=== PATIENT | male | born 1980 | race Hispanic/Latino ===

== ENCOUNTER 2024-10-02 07:24 | Emergency (ER) | payer MEDICARE ==
[~2024-10-02] VITALS: Ht 160 cm; Wt 112.5 kg
[2024-10-02 17:41] VITALS: PULSE 91; RESP 18; TEMP 98.9; O2SAT 96
[2024-10-02] MEDS ORDERED: AMOX TR-K CLV1 EAC2 PO (19:45)
== END 2024-10-02 20:04 | disposition home or self-care (01) ==
LOC: ER 18:11
DX: M25.572 Pain in left ankle and joints of left foot (principal); I10 Essential (primary) hypertension; E11.9 Type 2 diabetes mellitus without complications; E78.5 Hyperlipidemia, unspecified; I73.9 Peripheral vascular disease, unspecified; Q90.9 Down syndrome, unspecified
CPT/HCPCS: 99283

== ENCOUNTER 2024-10-07 23:03 | Inpatient (IN) | payer MEDICARE ==
[~2024-10-07] VITALS: Ht 160 cm; Wt 112.5 kg
[~2024-10-07 23:03] MED LIST: AMOX TR-K CLV1 EAC2 PO
[2024-10-07 23:19] VITALS: PULSE 91; RESP 20; TEMP 98.4
[2024-10-07] MEDS ORDERED: SODIUM CHLORIDE FLUSH 10 ML SYR IV PRN (23:30)
[2024-10-08] VITALS (8 sets, daily range): BP systolic 125–147; BP diastolic 75–94; PULSE 98–112; RESP 17–18; TEMP 97.9–99; O2SAT 96–99
[2024-10-08 00:02] LABS: BASOPHILS # (AUTO) 0.1 (0.0-0.1); BASOPHILS % 0.7 % (0.0-1.0); EOSINOPHILS # (AUTO) 0.1 (0.0-0.4); EOSINOPHILS % 1.9 % (0.0-6.0); HEMATOCRIT 48.6 % (38.2-49.6); LYMPHOCYTES # (AUTO) 1.7 (1.0-3.2); LYMPHOCYTES % 24.5 % (18.0-39.1); MEAN CORPUSCULAR HEMOGLOBIN 30.8 pg (28-32); MEAN CORPUSCULAR HGB CONC 32.9 g/dL (31-35); MEAN CORPUSCULAR VOLUME 93.6 fL (81-99); MONOCYTES # (AUTO) 0.5 (0.2-0.8); MONOCYTES % 7.1 % (4.4-11.3); NEUTROPHILS # (AUTO) 4.5 (2.1-6.9); NEUTROPHILS % 65.2 % (38.7-80.0); PLATELET COUNT 131 x10e3/uL (140-360); RED BLOOD COUNT 5.19 x10e6/uL (4.3-5.7); RED CELL DISTRIBUTION WIDTH 13.7 % (11.7-14.4); WHITE BLOOD COUNT 6.87 x10e3/uL (4.8-10.8)
[2024-10-08 00:16] LABS: INR 0.99; PROTHROMBIN TIME 13.7 seconds (11.9-14.5)
[2024-10-08 00:17] LABS: PARTIAL THROMBOPLASTIN TIME 32.5 seconds (23.8-35.5)
[2024-10-08 00:33] LABS: ALBUMIN 3.4 g/dL (3.5-5.0); ALBUMIN/GLOBULIN RATIO 0.8 (0.8-2.0); ANION GAP 16.1 mmol/L (8-16); BILIRUBIN,TOTAL 0.7 mg/dL (0.2-1.2); CALCIUM 9.1 mg/dL (8.4-10.2); CREATININE, SERUM 0.9 mg/dL (0.72-1.25); POTASSIUM 4.1 mmol/L (3.5-5.1); TOTAL PROTEIN 7.8 g/dL (6.5-8.1)
[2024-10-08 00:39] LABS: TROPONIN I 0.018 ng/mL (0-0.300)
[2024-10-08] MEDS: SODIUM CHLORIDE 0.9% 1000ML 1,000 ML IV ONE ×2 (01:46→02:24)
[2024-10-08] MEDS ORDERED: ONDANSETRON HCL INJ 2MG/ML 2ML 2 MG/ML VIAL IV PRN (03:00)
[2024-10-08] MEDS ORDERED: SODIUM CHLORIDE FLUSH 10 ML SYR INJ PRN (03:00)
[2024-10-08] MEDS: ASPIRIN 81 MG CHEW TAB PO ONE (04:04)
[2024-10-08] MEDS ORDERED: HYDRALAZINE HCL 20 MG/ML VIAL IV PRN (04:15)
[2024-10-08] MEDS ORDERED: METFORMIN HCL1000 MG PO (05:55)
[2024-10-08] MEDS ORDERED: OXCARBAZEPINE150 MG PO (05:55)
[2024-10-08] MEDS ORDERED: QUETIAPINE FUMA50 MG PO (05:55)
[2024-10-08] MEDS ORDERED: LISINOPRIL5 MG PO (05:55)
[2024-10-08] MEDS ORDERED: ROSUVASTATIN CAL5 MG PO (05:55)
[2024-10-08 07:25] LABS: CHOL/HDL RATIO 2.8 (3.9-4.7); MAGNESIUM 1.9 MG/DL (1.3-2.1); PHOSPHORUS 3.2 MG/DL (2.3-4.7)
[2024-10-08 07:32] LABS: TROPONIN I 0.012 ng/mL (0-0.300)
[2024-10-08 07:46] LABS: FREE T4 (FREE THYROXINE) 1.02 ng/dL (0.8-1.8)
[2024-10-08] MEDS: FAMOTIDINE 20 MG TAB PO SCH (08:59)
[2024-10-08] MEDS: DOCUSATE SODIUM 100 MG CAP PO SCH (08:59)
[2024-10-08] MEDS ORDERED: LISINOPRIL 2.5 MG TAB PO SCH (12:00)
[2024-10-08] MEDS ORDERED: OXCARBAZEPINE 300 MG TAB PO SCH (12:00)
[2024-10-08] MEDS ORDERED: QUETIAPINE FUMARATE 100 MG TAB PO SCH (12:00)
[2024-10-08] MEDS: OXCARBAZEPINE 300 MG TAB PO SCH (12:29)
[2024-10-08] MEDS: LISINOPRIL 2.5 MG TAB PO SCH (12:30)
[2024-10-08] MEDS: METFORMIN HCL 500 MG TAB PO SCH (16:57)
[2024-10-08] MEDS: QUETIAPINE FUMARATE 100 MG TAB PO SCH (16:58)
[2024-10-08] MEDS: SIMVASTATIN 20 MG TAB PO SCH (21:00)
[2024-10-09] VITALS (10 sets, daily range): BP systolic 104–118; BP diastolic 48–63; PULSE 97–123; RESP 16–19; TEMP 98.5–100; O2SAT 94–97
[2024-10-09 07:34] LABS: BASOPHILS # (AUTO) 0.1 (0.0-0.1); BASOPHILS % 0.5 % (0.0-1.0); EOSINOPHILS # (AUTO) 0.1 (0.0-0.4); EOSINOPHILS % 0.6 % (0.0-6.0); HEMATOCRIT 49.3 % (38.2-49.6); HEMOGLOBIN 16.3 g/dL (14.0-18.0); LYMPHOCYTES # (AUTO) 1.4 (1.0-3.2); LYMPHOCYTES % 12.8 % (18.0-39.1); MEAN CORPUSCULAR HGB CONC 33.1 g/dL (31-35); MEAN CORPUSCULAR VOLUME 93.7 fL (81-99); MONOCYTES # (AUTO) 0.6 (0.2-0.8); MONOCYTES % 5.9 % (4.4-11.3); NEUTROPHILS # (AUTO) 8.6 (2.1-6.9); NEUTROPHILS % 79.6 % (38.7-80.0); PLATELET COUNT 163 x10e3/uL (140-360); RED BLOOD COUNT 5.26 x10e6/uL (4.3-5.7); RED CELL DISTRIBUTION WIDTH 14.1 % (11.7-14.4); WHITE BLOOD COUNT 10.85 x10e3/uL (4.8-10.8)
[2024-10-09 07:55] LABS: ALBUMIN 3.1 g/dL (3.5-5.0); ALBUMIN/GLOBULIN RATIO 0.7 (0.8-2.0); ANION GAP 15.8 mmol/L (8-16); BILIRUBIN,TOTAL 1.1 mg/dL (0.2-1.2); CALCIUM 8.8 mg/dL (8.4-10.2); CREATININE, SERUM 0.86 mg/dL (0.72-1.25); POTASSIUM 3.8 mmol/L (3.5-5.1); TOTAL PROTEIN 7.3 g/dL (6.5-8.1)
[2024-10-09 08:14] LABS: CREATINE KINASE 91 IU/L (30-200)
[2024-10-09 08:54] LABS: TROPONIN I < 0.05 ng/mL (0.0-0.40)
[2024-10-09] MEDS: ACETAMINOPHEN 325 MG TAB PO PRN (16:14)
[2024-10-09] MEDS: POLYETHYLENE GLYCOL 3350 17 GM PACK PO PRN (16:15)
[2024-10-10] VITALS (8 sets, daily range): BP systolic 102–117; BP diastolic 47–60; PULSE 103–123; RESP 18–24; TEMP 97.8–99.7; O2SAT 92–97
[2024-10-10] MEDS: LORAZEPAM INJ 2 MG/ML VIAL IV ONE (12:36)
[2024-10-10 13:29] LABS: THYROID STIMULATING HORMONE 3.169 uIU/mL (0.350-4.940)
[2024-10-11] VITALS (7 sets, daily range): BP systolic 105–120; BP diastolic 61–68; PULSE 95–113; RESP 16–22; TEMP 97.6–98.8; O2SAT 94–99
[2024-10-11 07:52] LABS: BASOPHILS # (AUTO) 0.1 (0.0-0.1); BASOPHILS % 0.5 % (0.0-1.0); EOSINOPHILS # (AUTO) 0.1 (0.0-0.4); EOSINOPHILS % 1.3 % (0.0-6.0); HEMATOCRIT 47.5 % (38.2-49.6); HEMOGLOBIN 15.7 g/dL (14.0-18.0); LYMPHOCYTES # (AUTO) 1.4 (1.0-3.2); LYMPHOCYTES % 14.6 % (18.0-39.1); MEAN CORPUSCULAR HGB CONC 33.1 g/dL (31-35); MEAN CORPUSCULAR VOLUME 93.9 fL (81-99); MONOCYTES # (AUTO) 0.7 (0.2-0.8); MONOCYTES % 6.9 % (4.4-11.3); NEUTROPHILS # (AUTO) 7.3 (2.1-6.9); PLATELET COUNT 159 x10e3/uL (140-360); RED BLOOD COUNT 5.06 x10e6/uL (4.3-5.7); RED CELL DISTRIBUTION WIDTH 13.8 % (11.7-14.4); WHITE BLOOD COUNT 9.67 x10e3/uL (4.8-10.8)
[2024-10-11 08:09] LABS: ALBUMIN 2.9 g/dL (3.5-5.0); ALBUMIN/GLOBULIN RATIO 0.6 (0.8-2.0); ANION GAP 17.6 mmol/L (8-16); BILIRUBIN,TOTAL 1.1 mg/dL (0.2-1.2); CALCIUM 8.6 mg/dL (8.4-10.2); CREATININE, SERUM 0.86 mg/dL (0.72-1.25); POTASSIUM 3.6 mmol/L (3.5-5.1); TOTAL PROTEIN 7.4 g/dL (6.5-8.1)
[2024-10-11] MEDS ORDERED: MIDAZOLAM HCL 2 MG/2 ML VIAL ONE (10:01)
[2024-10-11] MEDS ORDERED: KETAMINE HCL INJ 50 MG/ML 10 ML VIAL ONE (10:01)
[2024-10-11] MEDS ORDERED: LIDOCAINE HCL 2% LOCAL INJ 5 ML SDV VIAL INJ ONE (10:01)
[2024-10-11] MEDS ORDERED: PROPOFOL IV EMULSION 50 ML IV ONE (10:01)
[2024-10-11] MEDS ORDERED: FENTANYL CITRATE/PF 100MCG/2 ML INJ ONE ×2 (10:02→10:03)
[2024-10-11] MEDS: THIAMINE HCL INJ 100 MG/ML 2ML VIAL IV SCH (17:12)
[2024-10-11] MEDS ORDERED: DEXAMETHASONE SOD PHOS 10 MG/1 ML VIAL IV SCH (21:00)
[2024-10-11] MEDS: DEXAMETHASONE SOD PHOS INJ 4 MG/ML SDV IV SCH (23:37)
[2024-10-12] VITALS (12 sets, daily range): BP systolic 99–115; BP diastolic 50–64; PULSE 103–114; RESP 16–20; TEMP 97.9–100.4; O2SAT 92–100
[2024-10-12 07:09] LABS: BASOPHILS % 0.3 % (0.0-1.0); HEMATOCRIT 47.4 % (38.2-49.6); HEMOGLOBIN 15.8 g/dL (14.0-18.0); LYMPHOCYTES # (AUTO) 0.6 (1.0-3.2); LYMPHOCYTES % 5.7 % (18.0-39.1); MEAN CORPUSCULAR HEMOGLOBIN 31.2 pg (28-32); MEAN CORPUSCULAR HGB CONC 33.3 g/dL (31-35); MEAN CORPUSCULAR VOLUME 93.7 fL (81-99); MONOCYTES # (AUTO) 0.1 (0.2-0.8); MONOCYTES % 0.7 % (4.4-11.3); NEUTROPHILS # (AUTO) 10.2 (2.1-6.9); NEUTROPHILS % 92.4 % (38.7-80.0); PLATELET COUNT 171 x10e3/uL (140-360); RED BLOOD COUNT 5.06 x10e6/uL (4.3-5.7); RED CELL DISTRIBUTION WIDTH 13.6 % (11.7-14.4); WHITE BLOOD COUNT 11.07 x10e3/uL (4.8-10.8)
[2024-10-12 07:39] LABS: CALCIUM 8.9 mg/dL (8.4-10.2); CREATININE, SERUM 0.86 mg/dL (0.72-1.25); MAGNESIUM 2.1 MG/DL (1.3-2.1); PHOSPHORUS 2.4 MG/DL (2.3-4.7)
[2024-10-13] VITALS (8 sets, daily range): BP systolic 103–120; BP diastolic 47–76; PULSE 73–116; RESP 18–20; TEMP 97.8–100.6; O2SAT 92–100
[2024-10-13] MEDS ORDERED: THROMBIN FOR SOLN 5,000 UNIT VIAL ONE (06:49)
[2024-10-13] MEDS ORDERED: Vancomycin IV 1 GM VIAL ONE (06:49)
[2024-10-13] MEDS ORDERED: LIDOCAINE 1% W/EPINEPHRINE 20 ML VIAL ONE (06:49)
[2024-10-13] MEDS ORDERED: SUGAMMADEX SODIUM 200 MG/2 ML VIAL IV ONE ×2 (06:59→11:47)
[2024-10-13] MEDS ORDERED: BACITRACIN ZINC 15 GM OINT ONE ×2 (08:03→09:28)
[2024-10-13 08:23] LABS: BASOPHILS % 0.1 % (0.0-1.0); HEMATOCRIT 43.6 % (38.2-49.6); HEMOGLOBIN 15.3 g/dL (14.0-18.0); LYMPHOCYTES # (AUTO) 0.8 (1.0-3.2); LYMPHOCYTES % 5.8 % (18.0-39.1); MEAN CORPUSCULAR HEMOGLOBIN 31.2 pg (28-32); MEAN CORPUSCULAR HGB CONC 35.1 g/dL (31-35); MONOCYTES # (AUTO) 0.3 (0.2-0.8); NEUTROPHILS # (AUTO) 12.5 (2.1-6.9); NEUTROPHILS % 91.2 % (38.7-80.0); PLATELET COUNT 195 x10e3/uL (140-360); RED CELL DISTRIBUTION WIDTH 13.4 % (11.7-14.4); WHITE BLOOD COUNT 13.66 x10e3/uL (4.8-10.8)
[2024-10-13 08:44] LABS: ANION GAP 14.8 mmol/L (8-16); CALCIUM 8.9 mg/dL (8.4-10.2); CREATININE, SERUM 0.81 mg/dL (0.72-1.25); POTASSIUM 3.8 mmol/L (3.5-5.1)
[2024-10-13] MEDS ORDERED: PROPOFOL IV EMULSION 10 MG/ML 20 ML VIAL ONE ×2 (09:10→10:28)
[2024-10-13] MEDS ORDERED: FENTANYL CITRATE/PF 100MCG/2 ML INJ ONE ×2 (09:10→11:17)
[2024-10-13] MEDS ORDERED: ROCURONIUM BROMIDE 0 ML IV ONE (09:10)
[2024-10-13] MEDS ORDERED: LIDOCAINE HCL 2% LOCAL INJ 5 ML SDV VIAL INJ ONE (09:10)
[2024-10-13] MEDS ORDERED: MIDAZOLAM HCL 2 MG/2 ML VIAL ONE (09:10)
[2024-10-13] MEDS ORDERED: ROCURONIUM BROMIDE 1 ML IV ONE (09:29)
[2024-10-13] MEDS ORDERED: CARISOPRODOL 350 MG TAB PO PRN (10:15)
[2024-10-13] MEDS ORDERED: Morphine 4mg INJECTION 4 MG/ML INJ IM PRN (10:15)
[2024-10-13] MEDS ORDERED: PROMETHAZINE HCL (IM) 25 MG/ML VIAL IM PRN (10:15)
[2024-10-13] MEDS ORDERED: ACETAMINOPHEN 325 MG TAB PO PRN (10:15)
[2024-10-13] MEDS ORDERED: ZOLPIDEM TARTRATE 5 MG TAB PO PRN (10:15)
[2024-10-13] MEDS ORDERED: MAGNESIUM/ALUMINUM/SIMETHICONE 30 ML UDC PO PRN (10:15)
[2024-10-13] MEDS ORDERED: HYDROMORPHONE 2MG/ML IV PRN (10:15)
[2024-10-13] MEDS ORDERED: ONDANSETRON HCL INJ 2MG/ML 2ML 2 MG/ML VIAL IV PRN (10:15)
[2024-10-13] MEDS ORDERED: SUCCINYLCHOLINE CHLORIDE 20 MG/ML 10ML VIAL ONE (10:21)
[2024-10-13] MEDS ORDERED: EYE LUBRICANT OPTH OINT 3.5GM TUBE OP ONE (10:22)
[2024-10-13] MEDS ORDERED: ONDANSETRON HCL INJ 2MG/ML 2ML 2 MG/ML VIAL ONE (10:34)
[2024-10-13] MEDS ORDERED: DEXAMETHASONE SOD PHOS INJ 4 MG/ML SDV ONE (10:34)
[2024-10-13] MEDS ORDERED: ACETAMINOPHEN 1000 MG/100 ML 100 ML IV ONE (10:53)
[2024-10-13] MEDS ORDERED: ROCURONIUM BROMIDE 2 ML IV ONE (11:00)
[2024-10-13] MEDS ORDERED: PHENYLEPHRINE HCL 1% 10 MG/ML VIAL ONE (11:07)
[2024-10-13] MEDS: LACTATED RINGER'S 1,000 ML IV SCH (14:17)
[2024-10-13] MEDS ORDERED: DEXTROSE 50% SYRINGE 50 ML IV PRN (19:00)
[2024-10-13] MEDS: INSULIN REGULAR, HUMAN 100 UNIT/1 ML SQ SCH (21:58)
[2024-10-13] MEDS: OXYCODONE/ACETAMINOPHEN 5-325 1 EACH TABLET PO PRN (22:11)
[2024-10-14] VITALS (9 sets, daily range): BP systolic 97–133; BP diastolic 52–88; PULSE 81–97; RESP 16–19; TEMP 98–99.2; O2SAT 94–97
[2024-10-15 04:00] VITALS: BP 110/62; PULSE 77; RESP 18; TEMP 98.7; O2SAT 98
[2024-10-15 04:55] VITALS: TEMP 98.7
[2024-10-15 06:48] VITALS: PULSE 87; RESP 20; O2SAT 97
[2024-10-15 06:50] LABS: BASOPHILS % 0.1 % (0.0-1.0); HEMATOCRIT 43.8 % (38.2-49.6); HEMOGLOBIN 15.2 g/dL (14.0-18.0); LYMPHOCYTES # (AUTO) 0.8 (1.0-3.2); LYMPHOCYTES % 6.5 % (18.0-39.1); MEAN CORPUSCULAR HEMOGLOBIN 31.3 pg (28-32); MEAN CORPUSCULAR HGB CONC 34.7 g/dL (31-35); MEAN CORPUSCULAR VOLUME 90.1 fL (81-99); MONOCYTES # (AUTO) 0.5 (0.2-0.8); MONOCYTES % 4.6 % (4.4-11.3); NEUTROPHILS % 87.2 % (38.7-80.0); PLATELET COUNT 179 x10e3/uL (140-360); RED BLOOD COUNT 4.86 x10e6/uL (4.3-5.7); RED CELL DISTRIBUTION WIDTH 13.7 % (11.7-14.4); WHITE BLOOD COUNT 11.46 x10e3/uL (4.8-10.8)
[2024-10-15 07:20] LABS: ALBUMIN 2.8 g/dL (3.5-5.0); ALBUMIN/GLOBULIN RATIO 0.7 (0.8-2.0); ANION GAP 12.2 mmol/L (8-16); BILIRUBIN,TOTAL 0.4 mg/dL (0.2-1.2); CALCIUM 8.5 mg/dL (8.4-10.2); CREATININE, SERUM 0.83 mg/dL (0.72-1.25); POTASSIUM 4.2 mmol/L (3.5-5.1); TOTAL PROTEIN 6.9 g/dL (6.5-8.1)
[2024-10-15 08:40] VITALS: BP 125/74; PULSE 76; RESP 18; TEMP 98.5; O2SAT 97
[2024-10-15 09:28] VITALS: BP 125/74; PULSE 76; RESP 18; TEMP 98.5; O2SAT 97
[2024-10-15 13:16] VITALS: BP 132/63; PULSE 106; RESP 19; TEMP 98.5; O2SAT 95
== END 2024-10-15 13:35 | DRG 519 ==
LOC: ER 23:10 → ERHOLD 10-08 02:48 → MED/SURG 10-08 05:11 → OBSVTOIN 10-09 13:24
PROVIDERS: ADMIT Internal Medicine; ATTEND Internal Medicine
PROC: 00NT0ZZ Release Spinal Meninges, Open Approach (ICD-10-PCS; principal; 2024-10-13 10:19)
DX: M47.12 Other spondylosis with myelopathy, cervical region (principal); E87.1 Hypo-osmolality and hyponatremia; Z68.41 Body mass index [BMI] 40.0-44.9, adult; M48.02 Spinal stenosis, cervical region; E66.01 Morbid (severe) obesity due to excess calories; Q90.9 Down syndrome, unspecified; I10 Essential (primary) hypertension; E78.5 Hyperlipidemia, unspecified; E11.51 Type 2 diabetes mellitus with diabetic peripheral angiopathy without gangrene; G31.9 Degenerative disease of nervous system, unspecified; R53.1 Weakness; I87.2 Venous insufficiency (chronic) (peripheral); Z11.52 Encounter for screening for COVID-19; R26.2 Difficulty in walking, not elsewhere classified; Z79.84 Long term (current) use of oral hypoglycemic drugs; Z86.73 Personal history of transient ischemic attack (TIA), and cerebral infarction without residual deficits; Z82.49 Family history of ischemic heart disease and other diseases of the circulatory system; Z83.3 Family history of diabetes mellitus
CPT/HCPCS: 36415; 70450; 70544; 70551; 71045; 72125; 72141; 76000; 80048; 80053; 80061; 82550; 82607; 82746; 82948; 83036; 83615; 83735; 83880; 84100; 84439; 84443; 84484; 85025; 85610; 85651; 85730; 86039; 86850; 86900; 88304; 88311; 93005; 94760; 94799; 99284; G0378; J0330; J0690; J1100; J2003; J2060; J2250; J2371; J2405; J3411; J7030; U0002

== ENCOUNTER 2025-08-08 09:12 | Emergency (ER) | payer MEDICARE ==
[~2025-08-08] VITALS: Ht 160 cm; Wt 117.9 kg
[~2025-08-08 09:12] MED LIST changes: +LISINOPRIL5 MG PO; +METFORMIN HCL1000 MG PO; +OXCARBAZEPINE150 MG PO; +QUETIAPINE FUMA50 MG PO; +ROSUVASTATIN CAL5 MG PO
[2025-08-08 09:30] VITALS: TEMP 98.8
[2025-08-08] MEDS: GABAPENTIN 300 MG CAP PO ONE (10:45)
[2025-08-08] MEDS: DEXAMETHASONE SOD PHOS 10 MG/1 ML VIAL IM ONE (10:47)
[2025-08-08] MEDS: KETOROLAC TROMETHAMINE 30 MG/ML VIAL IM STA (10:48)
[2025-08-08] MEDS ORDERED: NEURONTIN100 MG PO (11:20)
[2025-08-08 11:45] VITALS: PULSE 85; RESP 19
[2025-08-08 12:25] VITALS: BP 108/59; PULSE 86; RESP 19; TEMP 97.9; O2SAT 99
== END 2025-08-08 12:17 | disposition home or self-care (01) ==
LOC: ER 09:21
DX: M79.602 Pain in left arm (principal); M54.12 Radiculopathy, cervical region; R94.31 Abnormal electrocardiogram [ECG] [EKG]; I10 Essential (primary) hypertension; E11.9 Type 2 diabetes mellitus without complications; E78.5 Hyperlipidemia, unspecified; I73.9 Peripheral vascular disease, unspecified; Q90.9 Down syndrome, unspecified; Z87.74 Personal history of (corrected) congenital malformations of heart and circulatory system
CPT/HCPCS: 70450; 72125; 73030; 93005; 99283; J1100; J1885

== ENCOUNTER 2025-08-31 19:21 | Inpatient (IN) | payer MEDICARE ==
[~2025-08-31] VITALS: Ht 160 cm; Wt 117.9 kg
[~2025-08-31 19:21] MED LIST changes: +NEURONTIN100 MG PO
[2025-08-31 20:55] LABS: BASOPHILS % 0.6 % (0.0-1.0); EOSINOPHILS % 1.1 % (0.0-6.0); LYMPHOCYTES % 18.5 % (18.0-39.1); MONOCYTES % 7.0 % (4.4-11.3); NEUTROPHILS % 72.2 % (38.7-80.0); RED CELL DISTRIBUTION WIDTH 13.6 % (11.7-14.4)
[2025-08-31 21:18] LABS: EST GLOMERULAR FILTRATION RATE 106.0 ML/MIN (>=60)
[2025-08-31 23:30] LABS: LEUKOCYTE ESTERASE ,URINE TRACE (NEGATIVE); PROTEIN,URINE DIPSTICK NEGATIVE (NEGATIVE); URINE UROBILINOGEN 1 mg/dL (0.2 - 1)
[2025-08-31 23:44] LABS: EPITHELIAL CELLS,URINE MODERATE /LPF; WBC,URINE (MAN) 21-50 /HPF (0-5)
[2025-09-01] VITALS (13 sets, daily range): BP systolic 99–118; BP diastolic 47–73; PULSE 93–114; RESP 16–20; TEMP 98.3–98.9; O2SAT 93–100
[2025-09-01] MEDS ORDERED: ONDANSETRON HCL INJ 2MG/ML 2ML 2 MG/ML VIAL IV PRN (00:15)
[2025-09-01] MEDS ORDERED: DEXTROSE 50% SYRINGE 50 ML IV PRN (00:15)
[2025-09-01] MEDS: SODIUM CHLORIDE 0.9% 1000ML 1,000 ML IV ONE (02:44)
[2025-09-01] MEDS: INSULIN REGULAR, HUMAN 100 UNIT/1 ML SQ SCH (07:30)
[2025-09-01] MEDS ORDERED: ACETAMINOPHEN 1000 MG/100 ML IV PRN (12:30)
[2025-09-01] MEDS: SODIUM CHLORIDE 0.9% 1000ML 1,000 ML IV SCH (13:24)
[2025-09-01] MEDS: ENOXAPARIN SOD INJ 40 MG/0.4 ML SYR SC SCH (17:02)
[2025-09-01] MEDS ORDERED: IOPAMIDOL 370 MG/ML 100 ML INFUS..BTL INJ ONE (18:39)
[2025-09-01] MEDS: QUETIAPINE FUMARATE 25 MG TAB PO SCH (21:02)
[2025-09-02] VITALS (7 sets, daily range): BP systolic 95–114; BP diastolic 62–77; PULSE 78–109; RESP 18–20; TEMP 97.8–98.5; O2SAT 95–100
[2025-09-02 06:33] LABS: BASOPHILS % 0.5 % (0.0-1.0); EOSINOPHILS % 1.2 % (0.0-6.0); LYMPHOCYTES % 21.0 % (18.0-39.1); MONOCYTES % 6.9 % (4.4-11.3); NEUTROPHILS % 69.7 % (38.7-80.0); RED CELL DISTRIBUTION WIDTH 13.9 % (11.7-14.4)
[2025-09-02 07:19] LABS: PHOSPHORUS 3.0 MG/DL (2.3-4.7)
[2025-09-02 07:21] LABS: EST GLOMERULAR FILTRATION RATE 111.0 ML/MIN (>=60)
[2025-09-02] MEDS: OXCARBAZEPINE 300 MG TAB PO SCH (08:30)
[2025-09-02] MEDS ORDERED: MAGNESIUM SULFATE 2GM/50ML IV ONE (13:00)
[2025-09-02] MEDS: MAGNESIUM SULFATE 2GM/50ML 50 ML IV ONE (13:29)
[2025-09-02] MEDS: FOLIC ACID 1 MG TAB PO SCH (13:29)
[2025-09-02] MEDS: FLUCONAZOLE 100 MG TAB PO ONE (13:30)
[2025-09-02] MEDS: CYANOCOBALAMIN 1,000 MCG TAB PO SCH (13:30)
[2025-09-03] VITALS (7 sets, daily range): BP systolic 100–142; BP diastolic 54–77; PULSE 72–105; RESP 18–20; TEMP 97.6–98.6; O2SAT 94–100
[2025-09-03] MEDS: FLUCONAZOLE 100 MG TAB PO SCH (09:06)
[2025-09-03] MEDS: LACTULOSE SYRUP 20 GM/30 ML UDC PO PRN (18:29)
[2025-09-04] VITALS (10 sets, daily range): BP systolic 88–120; BP diastolic 47–75; PULSE 85–96; RESP 16–20; TEMP 98–99.5; O2SAT 95–100
[2025-09-04 06:20] LABS: BASOPHILS % 0.7 % (0.0-1.0); EOSINOPHILS % 2.7 % (0.0-6.0); LYMPHOCYTES % 27.2 % (18.0-39.1); MONOCYTES % 8.2 % (4.4-11.3); NEUTROPHILS % 60.0 % (38.7-80.0); RED CELL DISTRIBUTION WIDTH 14.1 % (11.7-14.4)
[2025-09-04 06:47] LABS: EST GLOMERULAR FILTRATION RATE 113.0 ML/MIN (>=60)
[2025-09-05] VITALS (8 sets, daily range): BP systolic 100–131; BP diastolic 57–82; PULSE 80–119; RESP 17–18; TEMP 98–99; O2SAT 95–100
[2025-09-06] VITALS (7 sets, daily range): BP systolic 91–112; BP diastolic 61–87; PULSE 83–113; RESP 18–20; TEMP 98.1–100; O2SAT 95–100
[2025-09-07 03:28] VITALS: BP 105/62; PULSE 86; RESP 18; TEMP 98.1; O2SAT 96
[2025-09-07 08:21] VITALS: BP 107/74; PULSE 87; RESP 20; TEMP 97.9; O2SAT 96
[2025-09-07 13:11] VITALS: BP 112/65; PULSE 98; RESP 19; TEMP 98; O2SAT 97
== END 2025-09-07 16:39 | disposition home or self-care (01) | DRG 871 ==
LOC: ER 19:47 → ERHOLD 09-01 00:10 → MED/SURG3 09-01 01:11
PROVIDERS: ADMIT Internal Medicine; ATTEND Internal Medicine
PROC: 0T9B70Z Drainage of Bladder with Drainage Device, Via Natural or Artificial Opening (ICD-10-PCS; principal; 2025-09-01)
DX: A41.9 Sepsis, unspecified organism (principal); G92.9 Unspecified toxic encephalopathy; J69.0 Pneumonitis due to inhalation of food and vomit; J18.9 Pneumonia, unspecified organism; Z68.42 Body mass index [BMI] 45.0-49.9, adult; R33.9 Retention of urine, unspecified; E66.01 Morbid (severe) obesity due to excess calories; Q90.9 Down syndrome, unspecified; R41.82 Altered mental status, unspecified; I10 Essential (primary) hypertension; E78.5 Hyperlipidemia, unspecified; E11.51 Type 2 diabetes mellitus with diabetic peripheral angiopathy without gangrene; E11.40 Type 2 diabetes mellitus with diabetic neuropathy, unspecified; G40.909 Epilepsy, unspecified, not intractable, without status epilepticus; E86.0 Dehydration; N47.1 Phimosis; N50.0 Atrophy of testis; K80.20 Calculus of gallbladder without cholecystitis without obstruction; N30.91 Cystitis, unspecified with hematuria; N13.9 Obstructive and reflux uropathy, unspecified; G47.33 Obstructive sleep apnea (adult) (pediatric); B37.2 Candidiasis of skin and nail; K76.0 Fatty (change of) liver, not elsewhere classified; Z79.84 Long term (current) use of oral hypoglycemic drugs; Z98.1 Arthrodesis status; Z98.890 Other specified postprocedural states
CPT/HCPCS: 36415; 51700; 70450; 71045; 71260; 72125; 73523; 74177; 80048; 80053; 81001; 82550; 82607; 82948; 83036; 83735; 84100; 84443; 84484; 85025; 87086; 93005; 93306; 94799; 99252; 99284; J0692; J0696; J1650; J3475; J7030; Q9967

== ENCOUNTER 2025-09-17 20:52 | Inpatient (IN) | payer MEDICARE ==
[~2025-09-17] VITALS: Ht 160 cm; Wt 113.4 kg
[2025-09-17 21:17] VITALS: TEMP 98.6
[2025-09-17 22:18] LABS: LEUKOCYTE ESTERASE ,URINE SMALL (NEGATIVE); PROTEIN,URINE DIPSTICK NEGATIVE (NEGATIVE); URINE UROBILINOGEN 2 mg/dL (0.2 - 1)
[2025-09-17 22:19] LABS: BASOPHILS % 0.4 % (0.0-1.0); EOSINOPHILS % 0.9 % (0.0-6.0); LYMPHOCYTES % 14.1 % (18.0-39.1); MONOCYTES % 5.7 % (4.4-11.3); NEUTROPHILS % 78.5 % (38.7-80.0); RED CELL DISTRIBUTION WIDTH 13.8 % (11.7-14.4)
[2025-09-17 22:20] LABS: EPITHELIAL CELLS,URINE FEW /LPF
[2025-09-17 22:41] LABS: EST GLOMERULAR FILTRATION RATE 95.0 ML/MIN (>=60)
[2025-09-17] MEDS ORDERED: SODIUM CHLORIDE FLUSH 10 ML SYR INJ PRN (23:15)
[2025-09-17] MEDS ORDERED: ONDANSETRON HCL INJ 2MG/ML 2ML 2 MG/ML VIAL IV PRN (23:15)
[2025-09-17 23:44] VITALS: PULSE 95; RESP 17
[2025-09-17] MEDS ORDERED: ACETAMINOPHEN 325 MG TAB PO PRN (23:45)
[2025-09-18] VITALS (9 sets, daily range): BP systolic 97–120; BP diastolic 60–74; PULSE 89–101; RESP 18–21; TEMP 97.3–98.6; O2SAT 96–99
[2025-09-18 06:18] LABS: BASOPHILS % 0.6 % (0.0-1.0); EOSINOPHILS % 1.2 % (0.0-6.0); LYMPHOCYTES % 25.4 % (18.0-39.1); MONOCYTES % 6.7 % (4.4-11.3); NEUTROPHILS % 65.6 % (38.7-80.0); RED CELL DISTRIBUTION WIDTH 14.0 % (11.7-14.4)
[2025-09-18 06:40] LABS: EST GLOMERULAR FILTRATION RATE 113.0 ML/MIN (>=60)
[2025-09-18] MEDS ORDERED: ACETAMINOPHEN 325 MG TAB PO PRN (10:15)
[2025-09-18] MEDS ORDERED: ONDANSETRON HCL INJ 2MG/ML 2ML 2 MG/ML VIAL IV PRN (10:15)
[2025-09-18] MEDS: OXCARBAZEPINE 300 MG TAB PO SCH (10:21)
[2025-09-18] MEDS: QUETIAPINE FUMARATE 25 MG TAB PO SCH (20:22)
[2025-09-19] VITALS: BP 107/63; PULSE 91; RESP 20; TEMP 98.6; O2SAT 100
[2025-09-19 04:00] VITALS: BP 93/63; PULSE 89; RESP 20; TEMP 98.2; O2SAT 96
[2025-09-19] MEDS ORDERED: FENTANYL CITRATE/PF 100MCG/2 ML INJ ONE (06:41)
[2025-09-19] MEDS ORDERED: MIDAZOLAM HCL 2 MG/2 ML VIAL ONE (06:42)
[2025-09-19] MEDS ORDERED: SEVOFLURANE INHAL SOLN 250 ML PEN BTL ONE (06:42)
[2025-09-19] MEDS ORDERED: LIDOCAINE HCL 2% LOCAL INJ 5 ML SDV VIAL INJ ONE (06:42)
[2025-09-19] MEDS ORDERED: PROPOFOL IV EMULSION 10 MG/ML 20 ML VIAL ONE (06:42)
[2025-09-19] MEDS ORDERED: PHENYLEPHRINE HCL 1% 10 MG/ML VIAL ONE (07:19)
[2025-09-19] MEDS ORDERED: SODIUM CHLORIDE 0.9% 100 ML ONE (07:20)
[2025-09-19] MEDS ORDERED: ROCURONIUM BROMIDE 1 ML IV ONE (07:26)
[2025-09-19] MEDS ORDERED: SUCCINYLCHOLINE CHLORIDE 20 MG/ML 10ML VIAL ONE (07:26)
[2025-09-19] MEDS ORDERED: ONDANSETRON HCL INJ 2MG/ML 2ML 2 MG/ML VIAL ONE (07:30)
[2025-09-19] MEDS ORDERED: FAMOTIDINE 20 MG/2 ML VIAL IV ONE (07:30)
[2025-09-19] MEDS ORDERED: ACETAMINOPHEN 1000 MG/100 ML 100 ML IV ONE (07:30)
[2025-09-19] MEDS ORDERED: TRAMADOL HCL 50 MG TAB PO PRN (09:00)
[2025-09-19] MEDS: TAMSULOSIN HCL 0.4 MG CAP PO STA (11:15)
[2025-09-19 11:19] VITALS: BP 108/93; PULSE 79; RESP 18; TEMP 97.3; O2SAT 95
[2025-09-19 13:57] VITALS: BP 108/93; PULSE 79; RESP 18; TEMP 97.3; O2SAT 95
[2025-09-19 15:48] VITALS: BP 118/84; PULSE 70; RESP 16; TEMP 97.6; O2SAT 96
[2025-09-19 20:00] VITALS: BP 95/56; PULSE 80; RESP 18; TEMP 97.3; O2SAT 98
[2025-09-19] MEDS: SODIUM CHLORIDE 0.9% 1000ML 1,000 ML ONE (22:33)
[2025-09-19] MEDS: TAMSULOSIN HCL 0.4 MG CAP PO SCH (22:36)
[2025-09-20] VITALS (10 sets, daily range): BP systolic 97–140; BP diastolic 54–77; PULSE 57–95; RESP 18–19; TEMP 97.6–98.6; O2SAT 97–100
[2025-09-20 08:50] LABS: BASOPHILS % 0.7 % (0.0-1.0); EOSINOPHILS % 1.8 % (0.0-6.0); LYMPHOCYTES % 21.6 % (18.0-39.1); MONOCYTES % 6.8 % (4.4-11.3); NEUTROPHILS % 68.3 % (38.7-80.0); RED CELL DISTRIBUTION WIDTH 14.2 % (11.7-14.4)
[2025-09-20 10:03] LABS: EST GLOMERULAR FILTRATION RATE 114.0 ML/MIN (>=60)
[2025-09-21] VITALS (8 sets, daily range): BP systolic 104–131; BP diastolic 55–78; PULSE 78–99; RESP 16–20; TEMP 97.6–98.5; O2SAT 96–100
[2025-09-21] MEDS: SODIUM CHLORIDE 0.9% 250ML 250 ML ONE (00:29)
[2025-09-21] MEDS: NEOMYCIN/POLYMYXIN/BACITRACIN 15 GM TUBE TOP SCH (20:37)
[2025-09-22] VITALS: BP 111/62; PULSE 78; RESP 20; TEMP 97.4; O2SAT 97
[2025-09-22 04:00] VITALS: BP 119/71; PULSE 92; RESP 20; TEMP 97.8; O2SAT 100
[2025-09-22 07:58] VITALS: BP 101/71; PULSE 83; RESP 18; TEMP 98.1; O2SAT 96
[2025-09-22 10:25] VITALS: BP 101/71; PULSE 83; RESP 18; TEMP 98.1; O2SAT 96
[2025-09-22 11:00] VITALS: BP 114/69; PULSE 87; RESP 18; TEMP 98.1; O2SAT 97
== END 2025-09-22 12:30 | disposition home or self-care (01) | DRG 728 ==
LOC: ER 20:54 → ERHOLD 23:01 → MED/SURG3 09-18 00:40 → OBSVTOIN 09-19 08:54
PROVIDERS: ADMIT Internal Medicine; ATTEND Internal Medicine
PROC: 0T2BX0Z Change Drainage Device in Bladder, External Approach (ICD-10-PCS; 2025-09-17)
PROC: 0TJB8ZZ Inspection of Bladder, Via Natural or Artificial Opening Endoscopic (ICD-10-PCS; 2025-09-19)
PROC: 0VTTXZZ Resection of Prepuce, External Approach (ICD-10-PCS; principal; 2025-09-19 07:10)
DX: N47.1 Phimosis (principal); Z68.41 Body mass index [BMI] 40.0-44.9, adult; N39.0 Urinary tract infection, site not specified; E66.813 Obesity, class 3; E11.9 Type 2 diabetes mellitus without complications; R31.29 Other microscopic hematuria; I10 Essential (primary) hypertension; K80.20 Calculus of gallbladder without cholecystitis without obstruction; N31.9 Neuromuscular dysfunction of bladder, unspecified; R33.9 Retention of urine, unspecified; N50.0 Atrophy of testis; Q90.9 Down syndrome, unspecified; Z79.84 Long term (current) use of oral hypoglycemic drugs; Z98.1 Arthrodesis status
CPT/HCPCS: 36415; 51700; 71045; 71250; 80048; 80053; 81001; 82948; 85025; 87086; 88304; 99252; 99284; G0378; J0330; J0696; J1308; J2003; J2250; J2371; J2405; J7030; J7050